=== PATIENT | male | born 1960 | race Caucasian/White ===

== ENCOUNTER 2018-12-19 11:08 | Emergency (ER) | payer OTHER, MEDICAID ==
[~2018-12-19] VITALS: Ht 162.6 cm; Wt 71.0 kg
[~2018-12-19 11:08] MED LIST: AMLO5TAB4 PO; CEPH-569 PO; HYDR-1348 PO; INSULIN
[2018-12-19] MEDS ORDERED: HYDROCODONE/ACETAMINOPHEN 5/325MG TABLET PO ONE (17:00)
[2018-12-19] MEDS ORDERED: IBUPROFEN 600MG TABLET PO ONE (17:00)
[2018-12-19] MEDS ORDERED: CLONIDINE 0.2MG TABLET PO ONE (17:45)
[2018-12-19 19:53] VITALS: BP 127/82
== END 2018-12-19 19:55 | disposition home or self-care (01) ==
LOC: ER 11:08
DX: S52.021A Displaced fracture of olecranon process without intraarticular extension of right ulna, initial encounter for closed fracture (principal); E11.9 Type 2 diabetes mellitus without complications; E78.00 Pure hypercholesterolemia, unspecified; I10 Essential (primary) hypertension; W10.8XXA Fall (on) (from) other stairs and steps, initial encounter; Y93.89 Activity, other specified; Y92.89 Other specified places as the place of occurrence of the external cause; Y99.8 Other external cause status; Z79.899 Other long term (current) drug therapy
CPT/HCPCS: 29105; 73080; 99284

== ENCOUNTER 2021-07-18 13:23 | Inpatient (IN) | payer OTHER, MEDICAID ==
[~2021-07-18] VITALS: Ht 165.1 cm; Wt 67.1 kg
[~2021-07-18 13:23] MED LIST changes: +ATOR40TA70 PO; +BRIN15DR4 EACHEYE; -CEPH-569 PO; +FLAS1EAC2 TP; +GABA-532 PO; +INSU100I28 SQ; -INSULIN; +LANC1COM2 MC; +LATA2.5D14 EACHEYE; +LISI40TA13 PO; +SERT25TA74 PO
[2021-07-18] MEDS ORDERED: SODIUM CHLORIDE 0.9% 1,000 ML IV ONE ×2 (14:00→15:30)
[2021-07-18 14:07] LABS: BG BASE EXCESS -4.9 mmol/L (-2.0-2.0); BG CARBOXYHEMOGLOBIN 0.5 % (0.5-1.5); BG DEOXYHEMOGLOBIN 4.5 % (0.0-5.0); BG HCO3 ACT 19.3 mmol/L (22.0-26.0); BG OXYGEN SATURATION 95.5 % (92.0-98.5); BG PCO2 33.6 mmHg (35.0-45.0); BG PH 7.378 (7.350-7.450); BG PO2 76.3 mmHg (75.0-100.0); BG SAMPLE SITE RIGHT BRACHIAL; BG TOTAL HEMOGLOBIN 14.4 g/dL (12.0-18.0); BG VENT MODE ROOM AIR
[2021-07-18 14:24] LABS: BASOPHILS % 0.6 % (0.0-2.0); EOSINOPHILS % 1.6 % (0.0-5.0); HEMATOCRIT. 40.1 % (42.0-52.0); LYMPHOCYTES % 25.5 % (20.0-50.0); MEAN CORPUSCULAR HEMOGLOBIN 29.5 pg (28.0-32.0); MEAN CORPUSCULAR VOLUME 84.9 fL (80.0-94.0); MEAN PLATELET VOLUME 9.2 fl (7.4-10.4); MONOCYTES % 11.7 % (2.0-8.0); NEUTROPHILS % 60.6 % (40.0-76.0); PLATELET 294 x1000/uL (130-400); RED BLOOD CELL COUNT 4.73 mill/uL (4.7-6.1); RED CELL DISTRIBUTION WIDTH 12.7 % (11.6-14.6)
[2021-07-18 14:32] LABS: CHLORIDE 107 mEq/L (98-107)
[2021-07-18 14:41] LABS: PHOSPHORUS 3.4 mg/dL (2.5-4.9)
[2021-07-18 14:43] LABS: BETA HYDROXYBUTYRATE 0.1 mMol/L (0.0-0.3)
[2021-07-18] MEDS ORDERED: INSULIN REGULAR (HUMULIN R) 300UNITS/3ML VIAL SUBCUT ONE (15:00)
[2021-07-18 18:16] LABS: CLARITY URINE CLEAR (CLEAR); COLOR URINE YELLOW (YELLOW); KETONES URINE NEGATIVE (NEGATIVE); LEUKOCYTE ESTERASE URINE NEGATIVE (NEGATIVE); NITRITE URINE NEGATIVE (NEGATIVE); OCCULT BLOOD URINE NEGATIVE (NEGATIVE); PROTEIN URINE 1+ (NEGATIVE); SPECIFIC GRAVITY URINE 1.022 (1.005-1.030); UROBILINOGEN URINE 0.2 E.U./dL (0.2-1.0)
[2021-07-19 04:35] VITALS: BP 184/99
[2021-07-19 05:01] VITALS: BP 184/99
[2021-07-19] MEDS ORDERED: *PATIENT'S OWN MEDICATION STORAGE XX SCH (05:45)
[2021-07-19 08:00] VITALS: BP 186/103
[2021-07-19] MEDS ORDERED: CLONIDINE 0.1MG TABLET PO PRN (08:45)
[2021-07-19] MEDS ORDERED: AMLODIPINE 10MG TABLET PO NR (09:15)
[2021-07-19] MEDS ORDERED: LISINOPRIL 20MG TABLET PO NR (09:15)
[2021-07-19] MEDS: SODIUM CHLORIDE 0.45% 1,000 ML IV SCH ×2 (10:28→21:53)
[2021-07-19] MEDS: INSULIN GLARGINE UD 100 UNITS/ML SYR SUBCUT SCH (10:30)
[2021-07-19 12:00] VITALS: BP 155/99
[2021-07-19] MEDS: HYDRALAZINE HCL 50MG TABLET PO SCH ×2 (15:27→21:18)
[2021-07-19] MEDS ORDERED: ONDANSETRON HCL 4MG/2ML INJ IV PRN (15:45)
[2021-07-19] MEDS ORDERED: BISACODYL 10MG SUPP PR PRN (15:45)
[2021-07-19] MEDS ORDERED: LORAZEPAM 2MG/ML CPJ IV PRN (15:45)
[2021-07-19] MEDS ORDERED: IPRATROPIUM/ALBUTEROL 0.5-3(2.5)MG/3ML NEB HHN PRN (15:45)
[2021-07-19] MEDS ORDERED: HYDROCODONE/ACETAMINOPHEN 5/325MG TABLET PO PRN (15:45)
[2021-07-19 16:00] VITALS: BP 138/84
[2021-07-19] MEDS ORDERED: DEXTROSE 50% WATER 50ML SYRINGE IV PRN (16:00)
[2021-07-19] MEDS ORDERED: NALOXONE HCL 0.4MG/ML VIAL IV PRN (16:30)
[2021-07-19] MEDS: BLOOD SUGAR DIAGNOSTIC STRIP TEST SCH ×2 (17:13→21:07)
[2021-07-19] MEDS: ASPIRIN 81MG TABLET PO SCH (17:13)
[2021-07-19] MEDS ORDERED: INSULIN LISPRO 100 UNITS/ML SUBCUT SCH (17:15)
[2021-07-19 17:22] LABS: BASOPHILS % 0.7 % (0.0-2.0); EOSINOPHILS % 0.8 % (0.0-5.0); HEMATOCRIT. 38.8 % (42.0-52.0); HEMOGLOBIN. 13.7 g/dL (14.0-18.0); LYMPHOCYTES % 18.3 % (20.0-50.0); MEAN CORPUSCULAR HEMOGLOBIN 30.1 pg (28.0-32.0); MEAN CORPUSCULAR VOLUME 85.1 fL (80.0-94.0); MEAN PLATELET VOLUME 8.9 fl (7.4-10.4); MONOCYTES % 8.6 % (2.0-8.0); NEUTROPHILS % 71.6 % (40.0-76.0); PLATELET 280 x1000/uL (130-400); RED BLOOD CELL COUNT 4.56 mill/uL (4.7-6.1); RED CELL DISTRIBUTION WIDTH 12.9 % (11.6-14.6)
[2021-07-19 17:30] LABS: PROTHROMBIN TIME 10.8 sec (9.6-11.0)
[2021-07-19 17:33] LABS: CHLORIDE 109 mEq/L (98-107)
[2021-07-19 20:00] VITALS: BP 141/81
[2021-07-19] MEDS ORDERED: LACTULOSE 20G/30ML UDC PO PRN (21:00)
[2021-07-19] MEDS: ATORVASTATIN CALCIUM 10MG TABLET PO SCH (21:19)
[2021-07-19] MEDS: FAMOTIDINE 20MG TABLET PO SCH (21:19)
[2021-07-19] MEDS: INSULIN LISPRO 100 UNITS/ML SUBCUT SCH (21:51)
[2021-07-20] VITALS: BP 98/67
[2021-07-20 04:00] VITALS: BP 118/73
[2021-07-20] MEDS: HYDRALAZINE HCL 50MG TABLET PO SCH ×4 (06:00→21:14)
[2021-07-20] MEDS: BLOOD SUGAR DIAGNOSTIC STRIP TEST SCH ×4 (06:24→21:13)
[2021-07-20] MEDS: INSULIN LISPRO 100 UNITS/ML SUBCUT SCH ×4 (06:29→21:00)
[2021-07-20 06:34] LABS: BASOPHILS % 0.6 % (0.0-2.0); EOSINOPHILS % 1.2 % (0.0-5.0); HEMATOCRIT. 38.1 % (42.0-52.0); HEMOGLOBIN. 13.3 g/dL (14.0-18.0); LYMPHOCYTES % 19.7 % (20.0-50.0); MEAN CORPUSCULAR HEMOGLOBIN 30.1 pg (28.0-32.0); MEAN CORPUSCULAR VOLUME 85.9 fL (80.0-94.0); MONOCYTES % 9.7 % (2.0-8.0); NEUTROPHILS % 68.8 % (40.0-76.0); PLATELET 291 x1000/uL (130-400); RED BLOOD CELL COUNT 4.43 mill/uL (4.7-6.1); RED CELL DISTRIBUTION WIDTH 12.8 % (11.6-14.6)
[2021-07-20 08:00] VITALS: BP 136/84
[2021-07-20] MEDS ORDERED: AMLODIPINE 10MG TABLET PO SCH (09:00)
[2021-07-20] MEDS ORDERED: LISINOPRIL 20MG TABLET PO SCH (09:00)
[2021-07-20] MEDS: ASPIRIN 81MG TABLET PO SCH (09:18)
[2021-07-20] MEDS: SODIUM CHLORIDE 0.45% 1,000 ML IV SCH (11:28)
[2021-07-20 12:00] VITALS: BP 149/92
[2021-07-20] MEDS: INSULIN GLARGINE UD 100 UNITS/ML SYR SUBCUT SCH (12:01)
[2021-07-20 16:00] VITALS: BP 137/85
[2021-07-20 20:00] VITALS: BP 142/84
[2021-07-20] MEDS: FAMOTIDINE 20MG TABLET PO SCH (21:14)
[2021-07-20] MEDS: ATORVASTATIN CALCIUM 10MG TABLET PO SCH (21:14)
[2021-07-21] VITALS: BP 145/82
[2021-07-21] MEDS: SODIUM CHLORIDE 0.45% 1,000 ML IV SCH ×2 (00:37→14:59)
[2021-07-21 04:00] VITALS: BP 143/81
[2021-07-21] MEDS: BLOOD SUGAR DIAGNOSTIC STRIP TEST SCH ×4 (05:45→20:28)
[2021-07-21] MEDS: HYDRALAZINE HCL 50MG TABLET PO SCH ×3 (05:46→20:57)
[2021-07-21] MEDS: INSULIN LISPRO 100 UNITS/ML SUBCUT SCH ×4 (05:47→20:29)
[2021-07-21 07:56] LABS: BASOPHILS % 0.7 % (0.0-2.0); HEMATOCRIT. 37.8 % (42.0-52.0); HEMOGLOBIN. 13.2 g/dL (14.0-18.0); LYMPHOCYTES % 21.5 % (20.0-50.0); MEAN CORPUSCULAR HEMOGLOBIN 29.5 pg (28.0-32.0); MEAN CORPUSCULAR VOLUME 84.6 fL (80.0-94.0); MEAN PLATELET VOLUME 9.6 fl (7.4-10.4); MONOCYTES % 10.5 % (2.0-8.0); NEUTROPHILS % 65.3 % (40.0-76.0); PLATELET 251 x1000/uL (130-400); RED BLOOD CELL COUNT 4.47 mill/uL (4.7-6.1); RED CELL DISTRIBUTION WIDTH 12.7 % (11.6-14.6)
[2021-07-21 08:00] VITALS: BP 155/85
[2021-07-21] MEDS: LISINOPRIL 10MG TABLET PO SCH (08:59)
[2021-07-21] MEDS: ASPIRIN 81MG TABLET PO SCH (09:00)
[2021-07-21] MEDS: AMLODIPINE 5MG TABLET PO SCH (09:00)
[2021-07-21] MEDS: INSULIN GLARGINE UD 100 UNITS/ML SYR SUBCUT SCH (10:17)
[2021-07-21 12:00] VITALS: BP 157/88
[2021-07-21 16:00] VITALS: BP 142/78
[2021-07-21 20:00] VITALS: BP 154/90
[2021-07-21] MEDS: FAMOTIDINE 20MG TABLET PO SCH (20:56)
[2021-07-21] MEDS: ATORVASTATIN CALCIUM 10MG TABLET PO SCH (20:57)
[2021-07-22] VITALS: BP 120/77
[2021-07-22 04:00] VITALS: BP 139/85
[2021-07-22] MEDS: HYDRALAZINE HCL 50MG TABLET PO SCH ×3 (06:18→21:37)
[2021-07-22] MEDS: BLOOD SUGAR DIAGNOSTIC STRIP TEST SCH ×4 (06:18→21:37)
[2021-07-22] MEDS: INSULIN LISPRO 100 UNITS/ML SUBCUT SCH ×4 (06:19→21:37)
[2021-07-22 07:40] LABS: BASOPHILS % 0.6 % (0.0-2.0); EOSINOPHILS % 2.1 % (0.0-5.0); HEMATOCRIT. 36.8 % (42.0-52.0); LYMPHOCYTES % 16.9 % (20.0-50.0); MEAN CORPUSCULAR HEMOGLOBIN 29.9 pg (28.0-32.0); MEAN CORPUSCULAR VOLUME 84.5 fL (80.0-94.0); MEAN PLATELET VOLUME 9.2 fl (7.4-10.4); MONOCYTES % 11.1 % (2.0-8.0); NEUTROPHILS % 69.3 % (40.0-76.0); PLATELET 253 x1000/uL (130-400); RED BLOOD CELL COUNT 4.35 mill/uL (4.7-6.1); RED CELL DISTRIBUTION WIDTH 12.9 % (11.6-14.6)
[2021-07-22 08:00] VITALS: BP 146/80
[2021-07-22] MEDS: ASPIRIN 81MG TABLET PO SCH (09:17)
[2021-07-22] MEDS: LISINOPRIL 10MG TABLET PO SCH (09:17)
[2021-07-22] MEDS: AMLODIPINE 5MG TABLET PO SCH (09:17)
[2021-07-22] MEDS: CLOPIDOGREL 75MG TABLET PO SCH (09:17)
[2021-07-22] MEDS: INSULIN GLARGINE UD 100 UNITS/ML SYR SUBCUT SCH (09:18)
[2021-07-22 12:00] VITALS: BP 145/84
[2021-07-22 16:00] VITALS: BP 120/80
[2021-07-22 20:00] VITALS: BP 153/96
[2021-07-22] MEDS: ATORVASTATIN CALCIUM 40MG TABLET PO SCH (21:37)
[2021-07-22] MEDS: FAMOTIDINE 20MG TABLET PO SCH (21:37)
[2021-07-23] VITALS (7 sets, daily range): BP systolic 117–158; BP diastolic 74–88
[2021-07-23] MEDS: HYDRALAZINE HCL 50MG TABLET PO SCH ×3 (06:12→22:30)
[2021-07-23] MEDS: BLOOD SUGAR DIAGNOSTIC STRIP TEST SCH ×4 (06:13→21:00)
[2021-07-23] MEDS: INSULIN LISPRO 100 UNITS/ML SUBCUT SCH ×4 (06:13→22:35)
[2021-07-23 07:45] LABS: BASOPHILS % 0.5 % (0.0-2.0); EOSINOPHILS % 2.5 % (0.0-5.0); HEMOGLOBIN. 12.7 g/dL (14.0-18.0); LYMPHOCYTES % 22.4 % (20.0-50.0); MEAN PLATELET VOLUME 9.3 fl (7.4-10.4); MONOCYTES % 12.4 % (2.0-8.0); NEUTROPHILS % 62.2 % (40.0-76.0); PLATELET 250 x1000/uL (130-400); RED BLOOD CELL COUNT 4.24 mill/uL (4.7-6.1); RED CELL DISTRIBUTION WIDTH 12.5 % (11.6-14.6)
[2021-07-23] MEDS: ASPIRIN 81MG TABLET PO SCH (09:39)
[2021-07-23] MEDS: CLOPIDOGREL 75MG TABLET PO SCH (09:40)
[2021-07-23] MEDS: AMLODIPINE 5MG TABLET PO SCH (09:40)
[2021-07-23] MEDS: LISINOPRIL 10MG TABLET PO SCH (09:40)
[2021-07-23] MEDS: INSULIN GLARGINE UD 100 UNITS/ML SYR SUBCUT SCH (09:41)
[2021-07-23] MEDS: FAMOTIDINE 20MG TABLET PO SCH (22:30)
[2021-07-23] MEDS: ATORVASTATIN CALCIUM 40MG TABLET PO SCH (22:30)
[2021-07-23] MEDS: LIDOCAINE HCL 4% CREAM 76GM TUBE TP SCH (22:30)
[2021-07-24 00:25] VITALS: BP 117/69
[2021-07-24 04:30] VITALS: BP 130/78
[2021-07-24] MEDS: LIDOCAINE HCL 4% CREAM 76GM TUBE TP SCH ×2 (05:41→14:20)
[2021-07-24] MEDS: HYDRALAZINE HCL 50MG TABLET PO SCH ×2 (05:41→14:20)
[2021-07-24] MEDS: BLOOD SUGAR DIAGNOSTIC STRIP TEST SCH ×3 (06:26→16:45)
[2021-07-24] MEDS: INSULIN LISPRO 100 UNITS/ML SUBCUT SCH ×3 (06:26→17:54)
[2021-07-24 08:30] VITALS: BP 121/68
[2021-07-24] MEDS: AMLODIPINE 5MG TABLET PO SCH (09:15)
[2021-07-24] MEDS: LISINOPRIL 10MG TABLET PO SCH (09:15)
[2021-07-24] MEDS: ASPIRIN 81MG TABLET PO SCH (09:15)
[2021-07-24] MEDS: CLOPIDOGREL 75MG TABLET PO SCH (09:15)
[2021-07-24] MEDS: INSULIN GLARGINE UD 100 UNITS/ML SYR SUBCUT SCH (10:14)
[2021-07-24 12:29] VITALS: BP 119/76
[2021-07-24 16:00] VITALS: BP 122/80
[2021-07-24 17:12] VITALS: BP 122/80
== END 2021-07-24 18:15 | DRG 64 ==
LOC: ER 13:23 → MICUSO 18:13 → 5WST 07-19 04:06
PROVIDERS: ADMIT Internal Medicine; ATTEND Internal Medicine
DX: I63.9 Cerebral infarction, unspecified (principal); K85.90 Acute pancreatitis without necrosis or infection, unspecified; G81.91 Hemiplegia, unspecified affecting right dominant side; N17.9 Acute kidney failure, unspecified; I13.0 Hypertensive heart and chronic kidney disease with heart failure and stage 1 through stage 4 chronic kidney disease, or unspecified chronic kidney disease; E11.65 Type 2 diabetes mellitus with hyperglycemia; E78.00 Pure hypercholesterolemia, unspecified; T38.3X6A Underdosing of insulin and oral hypoglycemic [antidiabetic] drugs, initial encounter; Z20.822 Contact with and (suspected) exposure to COVID-19; E78.5 Hyperlipidemia, unspecified; E11.21 Type 2 diabetes mellitus with diabetic nephropathy; E11.22 Type 2 diabetes mellitus with diabetic chronic kidney disease; N18.9 Chronic kidney disease, unspecified; R33.9 Retention of urine, unspecified; I50.9 Heart failure, unspecified; Z89.512 Acquired absence of left leg below knee; Z79.4 Long term (current) use of insulin; Z79.899 Other long term (current) drug therapy; Z79.891 Long term (current) use of opiate analgesic
CPT/HCPCS: 36415; 36600; 70551; 71045; 74176; 76700; 80048; 80053; 80061; 81003; 82010; 82375; 82805; 82962; 83036; 83735; 83880; 83930; 84100; 84153; 84484; 85025; 87426; 93005; 93306; 93880; 97110; 97116; 97162; 97166; 97535; 99285; J1815; J7030; G0103